=== PATIENT | male | born 1950 | race Caucasian/White ===

== ENCOUNTER 2017-07-25 17:20 | Inpatient (IN) ==
[2017-07-25] MEDS ORDERED: NORMAL SALINE 1,000 ML IV ONE (17:33)
--- NOTE | 2017-07-25 17:44 | ERNOTE ---
Neuro HPI ER Record Date of Service: 07/25/17 Presenting Symptoms: other - Decreased level of consciousness Time Seen by Provider: 07/25/17 17:29 Source: patient, EMS Exam Limitations: other - Decreased level of consciousness Immunizations: IMMUNIZATION HX Immunizations Up to Date Yes Hx Pneumococcal Vaccination No Allergies/Adverse Reactions: Allergies Allergy/AdvReac Type Severity Reaction Status Date / Time Iodinated Contrast- Oral and Allergy Severe Anaphylaxis Verified 07/25/17 17:41 IV Dye baby powder Allergy Severe Other Uncoded 07/25/17 23:21 Home Medications: HOME MEDICATIONS ALPRAZolam [Xanax] 0.25 mg PO BID PRN 07/25/17 [Last Taken Unknown] Acetaminophen 325 mg PO Q4H PRN 07/25/17 [Last Taken Unknown] Albuterol Sulfate/Ipratropium [Duoneb 2.5-0.5MG/3ML Soln] 3 ml IH QID 07/25/17 [ Last Taken Unknown] Allopurinol [Zyloprim (Allopurinol)] 100 mg PO DAILY 07/25/17 [Last Taken Unknown] Atorvastatin Calcium 10 mg PO DAILY 07/25/17 [Last Taken Unknown] Bisacodyl [Dulcolax Suppository] 10 mg RC DAILY PRN 07/25/17 [Last Taken Unknown ] Budesonide [Pulmicort Respules] 2 ml IH BID 07/25/17 [Last Taken Unknown] Clopidogrel Bisulfate [Plavix] 75 mg PO DAILY 07/25/17 [Last Taken Unknown] Docusate Sodium [Doc-Q-Lace] 100 mg PO BID 07/25/17 [Last Taken Unknown] Finasteride [Proscar] 5 mg PO DAILY 07/25/17 [Last Taken Unknown] Furosemide [Lasix] 80 mg PO BID 07/25/17 [Last Taken Unknown] Gabapentin 100 mg PO BID 07/25/17 [Last Taken Unknown] Guaifenesin/Pseudoephedrne HCl [Mucinex D ER Tablet] 1 each PO DAILY 07/25/17 [ Last Taken Unknown] Insulin Detemir [Levemir] 65 units SQ BID 07/25/17 [Last Taken Unknown] Insulin Lispro [Humalog] 30 unit SQ TID 07/25/17 [Last Taken Unknown] Insulin Lispro [Humalog] See Protocol SQ TID 07/25/17 [Last Taken Unknown] Levothyroxine Sodium [Synthroid] 300 mcg PO DAILY 07/25/17 [Last Taken Unknown] Magnesium Hydroxide [Milk Of Magnesia] 30 ml PO DAILY PRN 07/25/17 [Last Taken Unknown] Metoprolol Tartrate [Lopressor] 50 mg PO BID 07/25/17 [Last Taken Unknown] Montelukast Sodium [Singulair] 10 mg PO DAILY 07/25/17 [Last Taken Unknown] Montelukast Sodium [Singulair] 10 mg PO DAILY 07/25/17 [Last Taken Unknown] Pantoprazole Sodium 40 mg PO DAILY 07/25/17 [Last Taken Unknown] Polyethylene Glycol 3350 [Miralax] 17 gm PO DAILY PRN 07/25/17 [Last Taken Unknown] Saccharomyces Boulardii [Florastor] 250 mg PO BID 07/25/17 [Last Taken Unknown] Spironolactone [Aldactone] 25 mg PO DAILY 07/25/17 [Last Taken Unknown] Sucralfate [Carafate] 1 gm PO QID 07/25/17 [Last Taken Unknown] Tamsulosin HCl [Flomax] 0.4 mg PO HS 07/25/17 [Last Taken Unknown] Warfarin Sodium [Jantoven] 4 mg PO DAILY 07/25/17 [Last Taken Unknown] predniSONE [Prednisone] 3 tab PO DAILY 07/25/17 [Last Taken Unknown] traMADol HCL [Tramadol HCl] 50 mg PO Q4H PRN 07/25/17 [Last Taken Unknown] - History of Present Illness Narrative: This patient was brought in by ambulance for decreased level of consciousness. The story is unclear. He was recently at [facility] and was discharged to a [facility] yesterday. They reported to the EMS that he was well yesterday. They said that he aspirated a noodle at lunch so they did not feed him anymore. He had a low blood sugar and was given glucagon. His blood sugar was 188 afterwards. He has been doing some coughing. He has a decreased level of consciousness and they sent him here. The patient denies headache or any other pain. The records indicate that he is taking warfarin. He is on supplemental oxygen at home. Date (Duration): 07/25/17 Onset: other Review of Systems - Narrative Narrative: Limited. He denies chest pain. He denies abdominal pain. He is not short of breath. He denies nausea. Are always swollen but apparently are improved. - Patient's Past Medical History Patient History - Medical: History Unknown Patient History - Cardiac/Respiratory: History Unknown Patient History - Cancer: History Unknown Patient History - Surgical Procedures: Noncontributory Patient History - Other: None - Social History Living Situations: assisted living Psych History: No pertinent hx Smoking Status: Never smoker Alcohol Use: none Drug Use: none - Immunizations Immunizations Up to Date: Yes Hx Pneumococcal Vaccination: No Physical Exam - Physical Exam General Appearance: Present: lethargic, obese, other - drowsy. Head Exam: Present: normal inspection, no evidence of injury Eye Exam: Normal inspection: bilateral, PERRL: bilateral, EOMI: bilateral Ears, Nose, Throat: Present: normal ENT inspection, normal pharynx Neck: Present: normal inspection, other - Obese. Respiratory: Present: no respiratory distress, normal breath sounds, no accessory muscle use, chest nontender, lungs clear Cardiovascular/Chest: Present: regular rate, rhythm, no murmur Gastrointestinal/Abdominal: Present: normal bowel sounds, nontender, nondistended, soft, no organomegaly Extremity Exam: Present: pedal edema, other - He has compression nose in place. Neurological Exam: Present: no motor/sensory deficits, disoriented to place. Absent: facial droop, motor weakness Skin Exam: Present: normal color, warm/dry ED Progress - Date and Time Seen: Date and Time: 07/25/17 20:10 I spoke with Rosita and will repeat the ABG and admit him. Hospital records were requested from [facility]. His showed up later and I spoke with her also. The most likely scenario to me would be that he had a choking and hypoglycemic episode today. He probably had hypoventilation and CO2 retention causing his symptoms that caused him to be sent here. His felt that he was doing better/back to normal after receiving BiPAP. - Results and Orders Patient's Lab Results:: I have reviewed the patient's lab results. - Vital Signs Patient's Vital Signs:: I have reviewed the patient's vital signs. Vital Signs: Vital Signs 07/25/17 17:27 Temperature 35.9 C L Pulse Rate 60 Respiratory 15 Rate Blood Pressure 113/32 O2 Sat by Pulse 96 Oximetry - X-Ray X-Ray #1 X-Ray: chest Interpretation: Interp. by me - increased fluid. Blunting of the angles. Linear density right lower lobe. - CT/Ultrasound CT/Ultrasound Narrative: No acute changes on the head CT - Progress/Reassessment Chief Complaint: Altered Mental Status Departure Clinical Impression: Respiratory failure, CHF (congestive heart failure), Pneumonia - Departure Disposition: Short Term Hospital Inpatient Condition: Fair
[2017-07-25 17:59] LABS: Hematocrit 31.9 % (42.0-52.0); Hemoglobin 9.1 gm/dL (13.5-18.0); Mean Cell Volume 97.3 fl (78-100); Mean Corpuscular Hemoglobin 27.7 pg (27-31); Mean Corpuscular Hgb Conc 28.5 g/dl (32-36); Mean Platelet Volume 10.4 fl (6.0-9.5); Platelet Count 164 K/mm3 (150-450); Red Blood Count 3.28 M/mm3 (4.7-6.0); Red Cell Distribution Width 15.2 % (11.5-14.0); White Blood Count 13.5 K/mm3 (4.0-10.5)
[2017-07-25 18:12] LABS: Prothrombin Time (Patient) 22.3 Seconds (9.0-11.0)
[2017-07-25 18:13] LABS: INR 2.21 INR (0.90-1.10)
[2017-07-25 18:16] LABS: Albumin * 2.7 gm/dl (3.4-5.0); Anion Gap 7.7 mmol/L (6.8-13.8); BUN/Creatinine Ratio 38.3 (9.0-21.6); Bilirubin, Total 0.5 mg/dL (0.0-1.1); Ca. Corrected For Albumin 9.2 mg/dL (8.4-10.2); Calcium * 8.5 mg/dL (7.9-10.9); Potassium 4.7 mmol/L (3.4-4.6); Total Protein 6.5 gm/dL (6.2-8.2)
[2017-07-25 19:14] LABS: Urine Bilirubin Negative (NEGATIVE); Urine Ketone Negative (NEGATIVE); Urine Nitrite Negative (NEGATIVE); Urine Protein 30 mg/dL (NEGATIVE); Urine Specific Gravity 1.015 SP.GR. (1.005-1.030); Urine Urobilinogen Normal (NORMAL); Urine pH 5.5 pH (5.0-7.0)
[2017-07-25] MEDS ORDERED: FUROSEMIDE 10 MG/ML VIAL IV ONE (19:20)
[2017-07-25] MEDS ORDERED: FUROSEMIDE 10 MG/ML VIAL ONE (19:21)
[2017-07-25 19:24] LABS: Urine Appearance Clear (CLEAR); Urine Bacteria None Seen; Urine Blood 10 /ul (NEGATIVE); Urine Color Yellow; Urine RBC None Seen /hpf (0-5); Urine WBC None Seen /hpf (0-5)
--- NOTE | 2017-07-25 21:31 | HP ---
Chief Complaint - Chief Complaint Date of Service: 07/25/17 Time of Service: 21:31 Chief Complaint: "Decreased Level of Consciousness". Source of HPI- Pt; unreliable, ERP report. History of Present Illness: Mr. Mg is a 66-yr-old WM pt of Dr. Deborah Harman with a PMH of: A-fib, Aortic Stenosis s/p TAVR, Chronic Resp. Failure with Hypoxia, CHF, COPD (Severe) , DM II, HTN, Hypothyroidism, Lymphedema- due to Venous insufficiency, BILL ( Treated with BIPAP) & Morbid Obesity. Pt just got discharged from the [facility] to [facility] following hospitalization for multiple medical issues including Akira. Pneumonia from 07/15/17- 07/25/17. Pt is not a good historian and appears fatigued. It was reported to the ERP that he aspirated on noodles during lunch and therefore wasn't fed any further. Around 5 pm, he was found to be in a decreased state of consciousness. His blood sugar was checked and found to be 67. They attempted to treat him with carbs but he vomited . He was then given glucagon bringing his BS to upper 188. According to pt's spouse, pt had been swallowing difficulties even while at the [facility] and reported that video swallow had been recommended, but does not think it was completed. He is chronically on Oxygen at 2 L nc. At the ED tonight, No acute findings on Head CT. The CXR showed, Akira. Pleural effusion, and Pneumonia on the RUL (Official radiology report is pending). Notable Abnormal labs were: WBC of 13,500 with LT shift, BNP -->2041. He received Lasix 80 mg IVP at the ED. The ABGs showed Chronic Hypercapnic Respiratory. Failure. His Pneumonia severity on CURB 65-score is 3 which calls for inpatient admission with possible ICU admission. - Patient's Past Medical History Patient History - Medical: Diabetes Type 2 Insulin Dependent, Hypothyroidism, Other - Lymphadema, Aortic Stenosis, BILL, Patient History - Cardiac/Respiratory: Arrhythmias, CHF, COPD, Hypertension, Hyperlipidemia, CPAP/BiPAP Home Use Patient History - Surgical Procedures: Noncontributory Patient History - Other: None - Family History Father Family History - Medical: History Unknown Mother Family History - Medical: History Unknown - Social History Living Situations: assisted living Psych History: No pertinent hx Smoking Status: Never smoker Alcohol Use: none Drug Use: none - Immunizations Immunizations Up to Date: Yes Hx Pneumococcal Vaccination: No Review Of Systems (GEN) - Review of Systems Additional Comments: ROS unobtainable due to AMS. Allergies/Adverse Reactions: Allergies Allergy/AdvReac Type Severity Reaction Status Date / Time Iodinated Contrast- Oral and Allergy Severe Anaphylaxis Verified 07/25/17 17:41 IV Dye baby powder Allergy Severe Other Uncoded 07/25/17 23:21 Home Medications: HOME MEDICATIONS ALPRAZolam [Xanax] 0.25 mg PO BID PRN 07/25/17 [Last Taken Unknown] Acetaminophen 325 mg PO Q4H PRN 07/25/17 [Last Taken Unknown] Albuterol Sulfate/Ipratropium [Duoneb 2.5-0.5MG/3ML Soln] 3 ml IH QID 07/25/17 [ Last Taken Unknown] Allopurinol [Zyloprim (Allopurinol)] 100 mg PO DAILY 07/25/17 [Last Taken Unknown] Atorvastatin Calcium 10 mg PO DAILY 07/25/17 [Last Taken Unknown] Bisacodyl [Dulcolax Suppository] 10 mg RC DAILY PRN 07/25/17 [Last Taken Unknown ] Budesonide [Pulmicort Respules] 2 ml IH BID 07/25/17 [Last Taken Unknown] Clopidogrel Bisulfate [Plavix] 75 mg PO DAILY 07/25/17 [Last Taken Unknown] Docusate Sodium [Doc-Q-Lace] 100 mg PO BID 07/25/17 [Last Taken Unknown] Finasteride [Proscar] 5 mg PO DAILY 07/25/17 [Last Taken Unknown] Furosemide [Lasix] 80 mg PO BID 07/25/17 [Last Taken Unknown] Gabapentin 100 mg PO BID 07/25/17 [Last Taken Unknown] Guaifenesin/Pseudoephedrne HCl [Mucinex D ER Tablet] 1 each PO DAILY 07/25/17 [ Last Taken Unknown] Insulin Detemir [Levemir] 65 units SQ BID 07/25/17 [Last Taken Unknown] Insulin Lispro [Humalog] 30 unit SQ TID 07/25/17 [Last Taken Unknown] Insulin Lispro [Humalog] See Protocol SQ TID 07/25/17 [Last Taken Unknown] Levothyroxine Sodium [Synthroid] 300 mcg PO DAILY 07/25/17 [Last Taken Unknown] Magnesium Hydroxide [Milk Of Magnesia] 30 ml PO DAILY PRN 07/25/17 [Last Taken Unknown] Metoprolol Tartrate [Lopressor] 50 mg PO BID 07/25/17 [Last Taken Unknown] Montelukast Sodium [Singulair] 10 mg PO DAILY 07/25/17 [Last Taken Unknown] Montelukast Sodium [Singulair] 10 mg PO DAILY 07/25/17 [Last Taken Unknown] Pantoprazole Sodium 40 mg PO DAILY 07/25/17 [Last Taken Unknown] Polyethylene Glycol 3350 [Miralax] 17 gm PO DAILY PRN 07/25/17 [Last Taken Unknown] Saccharomyces Boulardii [Florastor] 250 mg PO BID 07/25/17 [Last Taken Unknown] Spironolactone [Aldactone] 25 mg PO DAILY 07/25/17 [Last Taken Unknown] Sucralfate [Carafate] 1 gm PO QID 07/25/17 [Last Taken Unknown] Tamsulosin HCl [Flomax] 0.4 mg PO HS 07/25/17 [Last Taken Unknown] Warfarin Sodium [Jantoven] 4 mg PO DAILY 07/25/17 [Last Taken Unknown] predniSONE [Prednisone] 3 tab PO DAILY 07/25/17 [Last Taken Unknown] traMADol HCL [Tramadol HCl] 50 mg PO Q4H PRN 07/25/17 [Last Taken Unknown] Exam - Exam Vital Signs: Vital Signs - Last Taken Temp 35.9 C L 07/25/17 17:27 Pulse 55 L 07/25/17 20:45 Resp 17 07/25/17 20:45 BP 151/65 07/25/17 20:45 Pulse Ox 99 07/25/17 20:45 Constitutional: Present: Alert, Cooperative, Morbidly obese, Looks Older than stated age. Absent: Oriented x3 ENT Exam: Present: dry mucous membranes Eye Exam: bilateral eye: normal inspection, PERRL Neck: Present: non-tender, full range of motion, supple Back Exam: Present: normal inspection, no CVA tenderness Breasts: Present: Exam deferred Respiratory: Present: no accessory muscle use, decreased breath sounds Cardiovascular/Chest: Present: normal peripheral pulses, regular rate, rhythm Abdomen: Present: Normal bowel sounds, soft, nontender, obese /Rectal: Present: Exam deferred Extremity: Present: lower extremity edema, slow capillary refill Skin Exam: Present: cool/dry Lymphatic: Present: no adenopathy Neurologic: Present: no motor/sensory deficits, alert Appearance: Present: impaired insight Eye contact: Present: cooperative, decreased rate of speech Thoughts: Present: no apparent hallucination Diagnostic Studies: Abnormal Lab Results 07/25/17 07/25/17 Range/Units Unknown Unknown pCO2 63.8 H (35.0-48.0) mmHg pO2 68.1 L (83.0-108.0) mmHg HCO3 35.2 H (21.0-28.0) mmol/L Total CO2 37.2 H (19.0-24.0) mmol/L Base Excess 8.2 H (-2.0-3.0) mmol/L ABG O2 Sat (Measured) 92.3 L (94.0-98.0) % Urine Protein 30 H (NEGATIVE) mg/dL Urine Blood 10 H (NEGATIVE) /ul Laboratory Results WBC 13.5 K/mm3 (4.0-10.5) H 07/25/17 17:57 RBC 3.28 M/mm3 (4.7-6.0) L 07/25/17 17:57 Hgb 9.1 gm/dL (13.5-18.0) L 07/25/17 17:57 Hct 31.9 % (42.0-52.0) L 07/25/17 17:57 MCV 97.3 fl (78-100) 07/25/17 17:57 MCH 27.7 pg (27-31) 07/25/17 17:57 MCHC 28.5 g/dl (32-36) L 07/25/17 17:57 RDW 15.2 % (11.5-14.0) H 07/25/17 17:57 Plt Count 164 K/mm3 (150-450) 07/25/17 17:57 MPV 10.4 fl (6.0-9.5) H 07/25/17 17:57 Immature Gran % (Auto) 1.50 % (0.001-0.429) H 07/25/17 17:57 Immature Gran # (Auto) 0.20 K/mm3 (0.000-0.0310) H 07/25/17 17:57 Neutrophils % 89.0 % (42-75.0) H 07/25/17 17:57 Lymphocytes % 6.4 % (20-51) L 07/25/17 17:57 Monocytes % 3.0 % (0.0-9) 07/25/17 17:57 Eosinophils % 0.0 % (0.0-3.0) 07/25/17 17:57 Basophils % 0.1 % (0.0-1.0) 07/25/17 17:57 Nucleated RBC % 0.0 k/mm3 (0-1) 07/25/17 17:57 Neutrophils # 12.0 K/mm3 (1.3-6.0) H 07/25/17 17:57 Lymphocytes # 0.87 k/mm3 (1.5-3.5) L 07/25/17 17:57 Monocytes # 0.4 k/mm3 (0.0-1.0) 07/25/17 17:57 Eosinophils # 0.0 k/mm3 (0.0-0.7) 07/25/17 17:57 Absolute Basophils 0.0 k/mm3 (0.0-0.1) 07/25/17 17:57 PT 22.3 Seconds (9.0-11.0) H 07/25/17 17:57 INR (Anticoag Therapy) 2.21 INR (0.90-1.10) H 07/25/17 17:57 pCO2 63.8 mmHg (35.0-48.0) H 07/25/17 Unknown pO2 68.1 mmHg (83.0-108.0) L 07/25/17 Unknown HCO3 35.2 mmol/L (21.0-28.0) H 07/25/17 Unknown Total CO2 37.2 mmol/L (19.0-24.0) H 07/25/17 Unknown Base Excess 8.2 mmol/L (-2.0-3.0) H 07/25/17 Unknown ABG pH 7.36 (7.35-7.45) 07/25/17 Unknown ABG O2 Sat (Measured) 92.3 % (94.0-98.0) L 07/25/17 Unknown Sodium 144 mmol/L (132-142) H 07/25/17 17:57 Plasma Sodium 145 mmol/L (130-142) H 07/25/17 17:57 Potassium 4.7 mmol/L (3.4-4.6) H 07/25/17 17:57 Chloride 102 mmol/L (97-106) 07/25/17 17:57 Carbon Dioxide 39.0 mmol/L (24-32.6) H 07/25/17 17:57 Anion Gap 7.7 mmol/L (6.8-13.8) 07/25/17 17:57 BUN 75 mg/dL (6-23) H 07/25/17 17:57 Creatinine 1.96 mg/dL (0.4-1.4) H 07/25/17 17:57 Est GFR (Non-Af Amer) 37 mL/min (60-130) L 07/25/17 17:57 BUN/Creatinine Ratio 38.3 (9.0-21.6) H 07/25/17 17:57 Random Glucose 165 mg/dL (70-110) H 07/25/17 17:57 Calcium 8.5 mg/dL (7.9-10.9) 07/25/17 17:57 Calcium Adj for Albumin 9.2 mg/dL (8.4-10.2) 07/25/17 17:57 Total Bilirubin 0.5 mg/dL (0.0-1.1) 07/25/17 17:57 AST 33 U/L (0-48) 07/25/17 17:57 ALT 38 U/L (19-67) 07/25/17 17:57 Alkaline Phosphatase 143 U/L (50-170) 07/25/17 17:57 B-Natriuretic Peptide 2041 pg/mL (5-350) H 07/25/17 18:30 Total Protein 6.5 gm/dL (6.2-8.2) 07/25/17 17:57 Albumin 2.7 gm/dl (3.4-5.0) L 07/25/17 17:57 Urine Color Yellow 07/25/17 Unknown Urine Appearance Clear (CLEAR) 07/25/17 Unknown Urine pH 5.5 pH (5.0-7.0) 07/25/17 Unknown Ur Specific [place] 1.015 SP.GR. (1.005-1.030) 07/25/17 Unknown Urine Protein 30 mg/dL (NEGATIVE) H 07/25/17 Unknown Urine Glucose (UA) Negative mg/dL (NEGATIVE) 07/25/17 Unknown Urine Ketones Negative mg/dL (NEGATIVE) 07/25/17 Unknown Urine Blood 10 /ul (NEGATIVE) H 07/25/17 Unknown Urine Nitrate Negative (NEGATIVE) 07/25/17 Unknown Urine Bilirubin Negative mg/dl (NEGATIVE) 07/25/17 Unknown Prot Sulfosalicylic Acd 1+ mg/dL (0) 07/25/17 Unknown Urine Urobilinogen Normal EU/dl (NORMAL) 07/25/17 Unknown Ur Leukocyte Esterase Negative /ul (NEGATIVE) 07/25/17 Unknown Urine RBC None seen /hpf (0-5) 07/25/17 Unknown Urine WBC None seen /hpf (0-5) 07/25/17 Unknown Ur Epithelial Cells 0-5 /hpf (0-5) 07/25/17 Unknown Urine Bacteria None seen (NONE) 07/25/17 Unknown Urine Culture Comments No culture indicated 07/25/17 Unknown Assessment/Plan - Assessment/Plan (1) Pneumonia Assessment: Due to recent hospitalization for Pneumonia, will treat as HAP and will start him on Zosyn. Will need to be evaluated by Speech for swallowing given reports of coughing and difficultyr swallowing which predipses for greater risk of Aspiration Pneumonia. Will keep him NPO until seen by Speech. Problem: Acute Qualifiers: Laterality: right Lung location: upper lobe of lung (2) CHF (congestive heart failure) Assessment: Given Lasix 80 IVP at the ED, Will resume his daily PO doses on 07/26. Problem: Chronic (3) Chronic respiratory failure with hypoxia Assessment: Chronically on 2 L of oxygen. Problem: Chronic (4) Hypercapnic respiratory failure, chronic Assessment: Monitor ABGs in am due to decreased LOC. Laboratory Tests 07/25/17 07/25/17 18:50 Unknown pCO2 74.3 H* 63.8 H pO2 66.1 L 68.1 L HCO3 36.2 H 35.2 H ABG pH 7.31 L 7.36 ABG O2 Sat (Measured) 90.3 L 92.3 L Problem: Chronic (5) CKD (chronic kidney disease) stage 3, GFR 30-59 ml/min Problem: Chronic (6) Diabetes Assessment: Hold Mealtime insulin. Start IVF with dextrose while NPO. Problem: Chronic Qualifiers: Diabetes mellitus type: type 2 (7) HTN (hypertension) Assessment: Stable- Continue Spironolactone, Lasix & Metroprolol. Problem: Chronic Qualifiers: Hypertension type: essential hypertension Qualified Code(s): I10 - Essential (primary) hypertension (8) A-fib Assessment: Stable- On Coumadin. Problem: Chronic (9) Lymphedema Problem: Chronic
[2017-07-25] MEDS ORDERED: ACETAMINOPHEN 325 MG TABLET PO PRN (21:41)
[2017-07-25] MEDS ORDERED: traMADol HCL 50 MG TABLET PO PRN (21:41)
[2017-07-25] MEDS ORDERED: ALPRAZolam 0.25 MG TABLET PO PRN (21:41)
[2017-07-25] MEDS ORDERED: BISACODYL 10 MG SUPP.RECT RC PRN (21:41)
[2017-07-25] MEDS ORDERED: MAGNESIUM HYDROXIDE 30 ML UDC PO PRN (21:41)
[2017-07-25] MEDS ORDERED: BUDESONIDE 0.5 MG/2 ML VIAL.NEB IH SCH (21:45)
[2017-07-25] MEDS ORDERED: ALBUTEROL SULFATE/IPRATROPIUM 3 ML NEBU IH SCH (21:45)
[2017-07-25] MEDS ORDERED: POLYETHYLENE GLYCOL 3350 119 GM BTL PO PRN (22:30)
[2017-07-25] MEDS: SACCHAROMYCES BOULARDII 250 MG CAPSULE PO SCH (23:44)
[2017-07-25] MEDS: SUCRALFATE 1 G TABLET PO SCH (23:44)
[2017-07-25] MEDS: METOPROLOL TARTRATE 50 MG TABLET PO SCH (23:51)
[2017-07-25] MEDS: INSULIN DETEMIR 100 UNITS/ML VIAL SC SCH (23:54)
[2017-07-26] MEDS: PIPERACILLIN SODIUM/TAZOBACTAM 3.375 GM in DEXTROSE 5 % IN WATER 100 ML IV SCH ×8 (00:31→23:19)
[2017-07-26] MEDS ORDERED: DEXTROSE 5%-NORMAL SALINE 1,000 ML IV PRN (01:42)
[2017-07-26] MEDS ORDERED: ALBUTEROL SULFATE/IPRATROPIUM 3 ML NEBU IH ONE (02:14)
[2017-07-26] MEDS ORDERED: BUDESONIDE 0.5 MG/2 ML VIAL.NEB IH ONE (02:14)
--- NOTE | 2017-07-26 05:01 | PN ---
Subjective - Date and Time Seen Date: 07/26/17 Time: 05:01 Subjective Narrative: Pt seen this am. He is alert and able to state needs. He diuresed 1850ml with Lasix 80 mg. ABGs this am show Resp. Hypoxia. No other acute events overnight. Objective - Vitals Vitals: Last Vital Signs Temp 36.8 C 07/25/17 23:32 Pulse 59 L 07/26/17 02:00 Resp 20 07/25/17 23:32 BP 127/60 07/25/17 23:32 Pulse Ox 94 07/25/17 23:32 - Abnormal Lab Findings Abnormal Lab Findings: Abnormal Lab Results 07/25/17 07/25/17 Range/Units Unknown Unknown pCO2 63.8 H (35.0-48.0) mmHg pO2 68.1 L (83.0-108.0) mmHg HCO3 35.2 H (21.0-28.0) mmol/L Total CO2 37.2 H (19.0-24.0) mmol/L Base Excess 8.2 H (-2.0-3.0) mmol/L ABG O2 Sat (Measured) 92.3 L (94.0-98.0) % Urine Protein 30 H (NEGATIVE) mg/dL Urine Blood 10 H (NEGATIVE) /ul - Exam Constitutional: Present: Alert, Oriented x3, Cooperative, No distress ENT Exam: Present: normal ENT inspection, hearing grossly normal Neck: Present: non-tender, full range of motion, supple Breasts: Present: Exam deferred Respiratory: Present: no accessory muscle use, decreased breath sounds, No wheezing Cardiovascular/Chest: Present: normal peripheral pulses, regular rate, rhythm, no chest tenderness Abdomen: Present: Normal bowel sounds, nontender, obese /Rectal: Present: Exam deferred Extremity: Present: normal range of motion, non-tender, normal inspection Skin Exam: Present: no cyanosis, cool/dry Lymphatic: Present: no adenopathy Neurologic: Present: no motor/sensory deficits, alert, oriented x 3 Appearance: Present: appropriate insight Eye contact: Present: cooperative, good eye contact, normal speech Thoughts: Present: normal thought pattern, no apparent hallucination Assessment/Plan - Problems/Diagnosis (1) Pneumonia Problem: Acute Qualifiers: Laterality: right Lung location: upper lobe of lung Narrative: Due to recent hospitalization for Pneumonia, will treat as HAP and will start him on Zosyn. Will need to be evaluated by Speech for swallowing given reports of coughing and difficultyr swallowing which predipses for greater risk of Aspiration Pneumonia. Will keep him NPO until seen by Speech. (2) Chronic respiratory failure with hypoxia Problem: Chronic Narrative: Chronically on 2 L of oxygen. Laboratory Tests 07/26/17 05:00 pCO2 66.0 H pO2 46.3 L HCO3 36.5 H Total CO2 38.6 H Base Excess 9.4 H ABG pH 7.36 ABG O2 Sat (Measured) 79.0 L 07/26/17- Has been on IPAP/EPAP of 02/11. Oxygen turned up to 40%. (3) CHF (congestive heart failure) Problem: Chronic Narrative: Given Lasix 80 IVP at the ED, Will resume his daily PO doses on 07/26. (4) Hypercapnic respiratory failure, chronic Problem: Chronic Narrative: Monitor ABGs in am due to decreased LOC. Laboratory Tests 07/25/17 07/25/17 18:50 Unknown pCO2 74.3 H* 63.8 H pO2 66.1 L 68.1 L HCO3 36.2 H 35.2 H ABG pH 7.31 L 7.36 ABG O2 Sat (Measured) 90.3 L 92.3 L (5) CKD (chronic kidney disease) stage 3, GFR 30-59 ml/min Problem: Chronic Narrative: (6) Diabetes Problem: Chronic Qualifiers: Diabetes mellitus type: type 2 Narrative: Hold Mealtime insulin. Start IVF with dextrose while NPO. (7) HTN (hypertension) Problem: Chronic Qualifiers: Hypertension type: essential hypertension Qualified Code(s): I10 - Essential (primary) hypertension Narrative: Stable- Continue Spironolactone, Lasix & Metroprolol. (8) A-fib Problem: Chronic (9) Lymphedema Problem: Chronic
[2017-07-26 05:49] LABS: Hemoglobin 8.9 gm/dL (13.5-18.0); Mean Cell Volume 94.9 fl (78-100); Mean Corpuscular Hemoglobin 28.2 pg (27-31); Mean Corpuscular Hgb Conc 29.7 g/dl (32-36); Neutrophil # 13.2 K/mm3 (1.3-6.0); Neutrophil % 88.6 % (42-75.0); Platelet Count 152 K/mm3 (150-450); Red Blood Count 3.16 M/mm3 (4.7-6.0); White Blood Count 14.9 K/mm3 (4.0-10.5)
[2017-07-26 06:07] LABS: Anion Gap 9.1 mmol/L (6.8-13.8); BUN/Creatinine Ratio 41.9 (9.0-21.6); Calcium * 8.4 mg/dL (7.9-10.9); Carbon Dioxide 36.9 mmol/L (24-32.6); Estimated Creat Clear 45.2
[2017-07-26] MEDS: ALBUTEROL SULFATE/IPRATROPIUM 3 ML NEBU IH SCH ×4 (06:45→18:12)
[2017-07-26] MEDS: BUDESONIDE 0.5 MG/2 ML VIAL.NEB IH SCH ×2 (06:45→18:17)
[2017-07-26] MEDS: PANTOPRAZOLE SODIUM 40 MG TABLET.EC PO SCH (06:48)
[2017-07-26] MEDS: LEVOTHYROXINE SODIUM 150 MCG TABLET PO SCH (06:48)
[2017-07-26] MEDS ORDERED: FUROSEMIDE 80 MG TABLET PO SCH (07:00)
[2017-07-26] MEDS ORDERED: POLYETHYLENE GLYCOL 3350 119 GM BTL PO PRN (07:15)
[2017-07-26] MEDS: FUROSEMIDE 10 MG/ML VIAL IV SCH ×2 (07:53→21:10)
[2017-07-26] MEDS: SACCHAROMYCES BOULARDII 250 MG CAPSULE PO SCH ×2 (07:59→21:08)
[2017-07-26] MEDS: SPIRONOLACTONE 25 MG TABLET PO SCH (07:59)
[2017-07-26] MEDS: DOCUSATE SODIUM 100 MG CAPSULE PO SCH ×2 (07:59→21:07)
[2017-07-26] MEDS: SUCRALFATE 1 G TABLET PO SCH ×4 (07:59→21:08)
[2017-07-26] MEDS: GUAIFENESIN PO SCH (08:00)
[2017-07-26] MEDS: GABAPENTIN 100 MG CAPSULE PO SCH ×2 (08:00→21:08)
[2017-07-26] MEDS: FINASTERIDE 5 MG TABLET PO SCH (08:00)
[2017-07-26] MEDS: CLOPIDOGREL BISULFATE 75 MG TABLET PO SCH (08:00)
[2017-07-26] MEDS: METOPROLOL TARTRATE 50 MG TABLET PO SCH ×2 (08:00→21:07)
[2017-07-26] MEDS: predniSONE 20 MG TABLET PO SCH (08:00)
[2017-07-26] MEDS: PSEUDOEPHEDRNE HCL PO SCH (08:00)
[2017-07-26] MEDS: ALLOPURINOL 100 MG TABLET PO SCH (08:00)
[2017-07-26 09:00] LABS: Prothrombin Time (Patient) 25.4 Seconds (9.0-11.0)
[2017-07-26] MEDS ORDERED: ROSUVASTATIN CALCIUM 10 MG TABLET PO SCH (09:00)
[2017-07-26] MEDS ORDERED: MONTELUKAST SODIUM 10 MG TABLET PO SCH ×2 (09:00)
[2017-07-26 09:05] LABS: INR 2.52 INR (0.90-1.10)
[2017-07-26] MEDS: INSULIN LISPRO 100 UNITS/ML VIAL SC SCH ×3 (09:22→17:26)
[2017-07-26] MEDS: INSULIN DETEMIR 100 UNITS/ML VIAL SC SCH ×2 (09:33→21:19)
--- NOTE | 2017-07-26 11:04 | PN ---
Progess Note - Interim Date: 07/26/17 Time: 11:03 Narrative: 07/26/17 11:03 I have taken Mr. Mg although his BiPAP and place him on 3 L nasal cannula but will titrate to keep oxygen greater than 90%. I will restart a consistent carb diet and then recheck blood gases at noon.
[2017-07-26] MEDS ORDERED: WARFARIN SODIUM 4 MG TABLET PO SCH (17:00)
[2017-07-26] MEDS: ROSUVASTATIN CALCIUM 10 MG TABLET PO SCH (21:08)
[2017-07-26] MEDS: MONTELUKAST SODIUM 10 MG TABLET PO SCH (21:08)
[2017-07-26] MEDS: TAMSULOSIN HCL 0.4 MG CAP.SR.24H PO SCH (21:09)
[2017-07-27 05:15] LABS: Hematocrit 29.8 % (42.0-52.0); Hemoglobin 8.8 gm/dL (13.5-18.0); Mean Corpuscular Hemoglobin 27.8 pg (27-31); Mean Corpuscular Hgb Conc 29.5 g/dl (32-36); Mean Platelet Volume 10.6 fl (6.0-9.5); Platelet Count 167 K/mm3 (150-450); Red Blood Count 3.17 M/mm3 (4.7-6.0); White Blood Count 10.4 K/mm3 (4.0-10.5)
[2017-07-27 05:22] LABS: Prothrombin Time (Patient) 36.6 Seconds (9.0-11.0)
[2017-07-27 05:27] LABS: Anion Gap 7.2 mmol/L (6.8-13.8); BUN/Creatinine Ratio 40.7 (9.0-21.6); Calcium * 8.4 mg/dL (7.9-10.9); Carbon Dioxide 38.5 mmol/L (24-32.6); Estimated Creat Clear 44.5; Potassium 3.7 mmol/L (3.4-4.6)
[2017-07-27 05:31] LABS: INR 3.61 INR (0.90-1.10)
[2017-07-27] MEDS: ALBUTEROL SULFATE/IPRATROPIUM 3 ML NEBU IH SCH ×4 (06:43→18:13)
[2017-07-27] MEDS: BUDESONIDE 0.5 MG/2 ML VIAL.NEB IH SCH ×2 (06:43→18:16)
[2017-07-27] MEDS: PANTOPRAZOLE SODIUM 40 MG TABLET.EC PO SCH (06:47)
[2017-07-27] MEDS: LEVOTHYROXINE SODIUM 150 MCG TABLET PO SCH (06:47)
[2017-07-27] MEDS: FUROSEMIDE 10 MG/ML VIAL IV SCH ×2 (06:47→21:10)
[2017-07-27] MEDS: PIPERACILLIN SODIUM/TAZOBACTAM 3.375 GM in DEXTROSE 5 % IN WATER 100 ML IV SCH ×4 (06:49→14:04)
[2017-07-27] MEDS: PSEUDOEPHEDRNE HCL PO SCH (08:02)
[2017-07-27] MEDS: GUAIFENESIN PO SCH (08:02)
--- NOTE | 2017-07-27 08:16 | PN ---
Subjective - Date and Time Seen Date: 07/27/17 Time: 08:01 Subjective Narrative: Martell Mg is sitting up in a chair this morning and and no distress. However as I was rounding his nurse was checking his blood sugar and it was 61. They've given him several glasses of orange juice and then recheck the blood sugar 62 about 30 minutes ago and now is up 202 and he is eating breakfast. He was alert and conversant and was not diaphoretic. His pneumonia seems to be responding well to treatment. He has been afebrile. He is on 2 L nasal cannula which is the best he's been since he developed pneumonia. He is sleeping with his BiPAP device but has off while awake now. Anticipate going back to the [facility] tomorrow. Objective - Review of Systems Generalized/Overall Review: Reports: Weakness, Malaise. Denies: Chills, Fever, Diaphoresis, Fatigue EENTM: Reports: No Symptoms Reported Respiratory: Reports: Cough, Shortness of Breath, Orthopnea, Wheezing Cardiac: Reports: No Symptoms Reported Abdominal: Reports: No Symptoms Reported Genitourinary Symptoms: Reports: No Symptoms Reported Musculoskeletal Complaints: Reports: No Symptoms Reported Neurological: Reports: No Symptoms Reported Skin: Reports: No Symptoms Reported Endocrine: Reports: No Symptoms Reported - Vitals Vitals: Last Vital Signs Temp 36.8 C 07/27/17 07:16 Pulse 72 07/27/17 07:16 Resp 20 07/27/17 07:16 BP 130/75 07/27/17 07:16 Pulse Ox 100 07/27/17 07:16 - Abnormal Lab Findings Abnormal Lab Findings: Abnormal Lab Results 07/26/17 07/26/17 07/26/17 Range/Units 04:55 08:15 12:00 RBC (4.7-6.0) M/mm3 Hgb (13.5-18.0) gm/dL Hct (42.0-52.0) % MCHC (32-36) g/dl RDW (11.5-14.0) % MPV (6.0-9.5) fl Immature Gran % (Auto) (0.001-0.429) % Immature Gran # (Auto) (0.000-0.0310) K/mm3 Neutrophils % (42-75.0) % Lymphocytes % (20-51) % Monocytes % (0.0-9) % Neutrophils # (1.3-6.0) K/mm3 Lymphocytes # (1.5-3.5) k/mm3 PT 25.4 H (9.0-11.0) Seconds INR (Anticoag Therapy) 2.52 H (0.90-1.10) INR pCO2 53.8 H (35.0-48.0) mmHg pO2 137.4 H (83.0-108.0) mmHg HCO3 33.5 H 32.6 H (21.0-28.0) mmol/L Total CO2 35.1 H 34.1 H (19.0-24.0) mmol/L Base Excess 7.7 H 7.7 H (-2.0-3.0) mmol/L ABG O2 Sat (Measured) 98.7 H (94.0-98.0) % Sodium (132-142) mmol/L Plasma Sodium (130-142) mmol/L Chloride (97-106) mmol/L Carbon Dioxide (24-32.6) mmol/L BUN (6-23) mg/dL Creatinine (0.4-1.4) mg/dL Est GFR (Non-Af Amer) (60-130) mL/min BUN/Creatinine Ratio (9.0-21.6) 07/27/17 07/27/17 07/27/17 Range/Units 04:55 04:55 04:55 RBC 3.17 L (4.7-6.0) M/mm3 Hgb 8.8 L (13.5-18.0) gm/dL Hct 29.8 L (42.0-52.0) % MCHC 29.5 L (32-36) g/dl RDW 15.0 H (11.5-14.0) % MPV 10.6 H (6.0-9.5) fl Immature Gran % (Auto) 1.40 H (0.001-0.429) % Immature Gran # (Auto) 0.14 H (0.000-0.0310) K/mm3 Neutrophils % 77.0 H (42-75.0) % Lymphocytes % 10.9 L (20-51) % Monocytes % 9.5 H (0.0-9) % Neutrophils # 8.0 H (1.3-6.0) K/mm3 Lymphocytes # 1.13 L (1.5-3.5) k/mm3 PT 36.6 H (9.0-11.0) Seconds INR (Anticoag Therapy) 3.61 H (0.90-1.10) INR pCO2 (35.0-48.0) mmHg pO2 (83.0-108.0) mmHg HCO3 (21.0-28.0) mmol/L Total CO2 (19.0-24.0) mmol/L Base Excess (-2.0-3.0) mmol/L ABG O2 Sat (Measured) (94.0-98.0) % Sodium 149 H (132-142) mmol/L Plasma Sodium 149 H (130-142) mmol/L Chloride 107 H (97-106) mmol/L Carbon Dioxide 38.5 H (24-32.6) mmol/L BUN 74 H (6-23) mg/dL Creatinine 1.82 H (0.4-1.4) mg/dL Est GFR (Non-Af Amer) 40 L (60-130) mL/min BUN/Creatinine Ratio 40.7 H (9.0-21.6) - Exam Constitutional: Present: Alert, Oriented x3, Cooperative, Morbidly obese ENT Exam: Present: normal ENT inspection, hearing grossly normal, pharynx normal , TMs normal Neck: Present: non-tender, full range of motion, supple Breasts: Present: Nontender Respiratory: Present: rhonchi, wheezing Cardiovascular/Chest: Present: normal peripheral pulses, regular rate, rhythm, no chest tenderness, no JVD, no murmur, edema Abdomen: Present: Normal bowel sounds, soft, nontender, nondistended /Rectal: Present: hemorrhoids Extremity: Present: lower extremity edema, pedal edema, swelling Skin Exam: Present: normal color, warm/dry, no cyanosis Lymphatic: Present: no adenopathy Neurologic: Present: 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 Repeat chest x-ray and CBC and CMP tomorrow morning. - Problems/Diagnosis (1) Pneumonia Problem: Acute Qualifiers: Pneumonia type: due to unspecified organism Laterality: right Lung location: upper lobe of lung Qualified Code(s): J18.1 - Lobar pneumonia, unspecified organism (2) Chronic respiratory failure with hypoxia Problem: Chronic (3) Diabetes Problem: Chronic Qualifiers: Diabetes mellitus type: type 2 Diabetes mellitus skilled nursing insulin use: with skilled nursing use Diabetes mellitus complication status: with hypoglycemia
[2017-07-27] MEDS: INSULIN LISPRO 100 UNITS/ML VIAL SC SCH ×3 (08:26→17:06)
[2017-07-27] MEDS: FINASTERIDE 5 MG TABLET PO SCH (08:29)
[2017-07-27] MEDS: CLOPIDOGREL BISULFATE 75 MG TABLET PO SCH (08:29)
[2017-07-27] MEDS: SACCHAROMYCES BOULARDII 250 MG CAPSULE PO SCH ×2 (08:30→20:54)
[2017-07-27] MEDS: METOPROLOL TARTRATE 50 MG TABLET PO SCH ×2 (08:30→20:53)
[2017-07-27] MEDS: ALLOPURINOL 100 MG TABLET PO SCH (08:30)
[2017-07-27] MEDS: GABAPENTIN 100 MG CAPSULE PO SCH ×2 (08:30→20:54)
[2017-07-27] MEDS: predniSONE 20 MG TABLET PO SCH (08:30)
[2017-07-27] MEDS: DOCUSATE SODIUM 100 MG CAPSULE PO SCH ×2 (08:30→20:54)
[2017-07-27] MEDS: SUCRALFATE 1 G TABLET PO SCH ×4 (08:30→20:53)
[2017-07-27] MEDS: SPIRONOLACTONE 25 MG TABLET PO SCH (08:30)
[2017-07-27] MEDS: INSULIN DETEMIR 100 UNITS/ML VIAL SC SCH ×2 (08:36→20:59)
[2017-07-27] MEDS ORDERED: LORazepam 1 MG TABLET PO STA (20:32)
[2017-07-27] MEDS: MONTELUKAST SODIUM 10 MG TABLET PO SCH (20:53)
[2017-07-27] MEDS: ROSUVASTATIN CALCIUM 10 MG TABLET PO SCH (20:53)
[2017-07-27] MEDS: TAMSULOSIN HCL 0.4 MG CAP.SR.24H PO SCH (20:53)
--- NOTE | 2017-07-27 21:18 | PN ---
Terry Note - Interim Date: 07/27/17 Time: 20:30 Narrative: 07/27/17 21:16 I was advised by nursing that Mr. Mg became confused and agitated and was trying to hit staff striking out at his left etc. I went down to see him in his room. His oxygen saturation is 97%. Fingerstick blood sugar was greater than 200. His reports that he has a history of doing this and that lorazepam is helping the past. She is coming in to try to calm him down. I did order him lorazepam 1 mg by mouth. There is no respiratory distress. His color is good. Breath sounds are mostly clear now. Heart has a slightly tacky rate regular rhythm. He is emotionally distraught anxious and a bit tremulous.
[2017-07-28] MEDS: PIPERACILLIN SODIUM/TAZOBACTAM 3.375 GM in DEXTROSE 5 % IN WATER 100 ML IV SCH ×4 (00:22→06:51)
[2017-07-28 05:23] LABS: Hematocrit 29.6 % (42.0-52.0); Hemoglobin 8.9 gm/dL (13.5-18.0); Mean Cell Volume 91.9 fl (78-100); Mean Corpuscular Hemoglobin 27.6 pg (27-31); Mean Corpuscular Hgb Conc 30.1 g/dl (32-36); Mean Platelet Volume 10.4 fl (6.0-9.5); Neutrophil # 8.7 K/mm3 (1.3-6.0); Neutrophil % 82.3 % (42-75.0); Platelet Count 169 K/mm3 (150-450); Red Blood Count 3.22 M/mm3 (4.7-6.0); Red Cell Distribution Width 14.8 % (11.5-14.0); White Blood Count 10.6 K/mm3 (4.0-10.5)
[2017-07-28 05:31] LABS: Prothrombin Time (Patient) 26.8 Seconds (9.0-11.0)
[2017-07-28 05:32] LABS: Anion Gap 5.2 mmol/L (6.8-13.8); BUN/Creatinine Ratio 40.1 (9.0-21.6); Calcium * 8.6 mg/dL (7.9-10.9); Carbon Dioxide 38.3 mmol/L (24-32.6); Estimated Creat Clear 45.7; Potassium 4.5 mmol/L (3.4-4.6)
[2017-07-28] MEDS: ALBUTEROL SULFATE/IPRATROPIUM 3 ML NEBU IH SCH ×2 (06:03→10:49)
[2017-07-28] MEDS: BUDESONIDE 0.5 MG/2 ML VIAL.NEB IH SCH (06:03)
[2017-07-28 06:38] LABS: INR 2.65 INR (0.90-1.10)
[2017-07-28] MEDS: PANTOPRAZOLE SODIUM 40 MG TABLET.EC PO SCH (06:51)
[2017-07-28] MEDS: INSULIN LISPRO 100 UNITS/ML VIAL SC SCH ×2 (06:51→11:44)
[2017-07-28] MEDS: LEVOTHYROXINE SODIUM 150 MCG TABLET PO SCH (06:51)
[2017-07-28] MEDS: FUROSEMIDE 10 MG/ML VIAL IV SCH (06:52)
[2017-07-28] MEDS: ALLOPURINOL 100 MG TABLET PO SCH (08:15)
[2017-07-28] MEDS: GABAPENTIN 100 MG CAPSULE PO SCH (08:15)
[2017-07-28] MEDS: FINASTERIDE 5 MG TABLET PO SCH (08:15)
[2017-07-28] MEDS: SPIRONOLACTONE 25 MG TABLET PO SCH (08:16)
[2017-07-28] MEDS: PSEUDOEPHEDRNE HCL PO SCH (08:16)
[2017-07-28] MEDS: SACCHAROMYCES BOULARDII 250 MG CAPSULE PO SCH (08:16)
[2017-07-28] MEDS: SUCRALFATE 1 G TABLET PO SCH ×2 (08:16→12:52)
[2017-07-28] MEDS: METOPROLOL TARTRATE 50 MG TABLET PO SCH (08:16)
[2017-07-28] MEDS: INSULIN DETEMIR 100 UNITS/ML VIAL SC SCH (08:16)
[2017-07-28] MEDS: CLOPIDOGREL BISULFATE 75 MG TABLET PO SCH (08:16)
[2017-07-28] MEDS: DOCUSATE SODIUM 100 MG CAPSULE PO SCH (08:16)
[2017-07-28] MEDS: GUAIFENESIN PO SCH (08:16)
[2017-07-28] MEDS: predniSONE 20 MG TABLET PO SCH (08:16)
[2017-07-28 12:52] VITALS: BP 131/63
--- NOTE | 2017-07-28 12:54 | DS ---
(1) Pneumonia Problem: Acute Qualifiers: Pneumonia type: due to unspecified organism Laterality: bilateral (2) Hypercapnic respiratory failure, chronic Problem: Chronic Description of Stay: ADMISSION DATE: 07/25/2017 DISCHARGE DATE: 07/28/2017 ADMISSION HPI by SAVANNAH Almonte: Mr. Mg is a 66-yr-old WM pt of Dr. Deborah Harman with a PMH of: A-fib, Aortic Stenosis s/p TAVR, Chronic Resp. Failure with Hypoxia, CHF, COPD (Severe) , DM II, HTN, Hypothyroidism, Lymphedema- due to Venous insufficiency, BILL ( Treated with BIPAP) & Morbid Obesity. Pt just got discharged from the [facility] to [facility] following hospitalization for multiple medical issues including Akira. Pneumonia from 07/15/17- 07/25/17. Pt is not a good historian and appears fatigued. It was reported to the ERP that he aspirated on noodles during lunch and therefore wasn't fed any further. Around 5 pm, he was found to be in a decreased state of consciousness. His blood sugar was checked and found to be 67. They attempted to treat him with carbs but he vomited . He was then given glucagon bringing his BS to upper 188. According to pt's spouse, pt had been swallowing difficulties even while at the [facility] and reported that video swallow had been recommended, but does not think it was completed. He is chronically on Oxygen at 2 L nc. At the ED tonight, No acute findings on Head CT. The CXR showed, Akira. Pleural effusion, and Pneumonia on the RUL (Official radiology report is pending). Notable Abnormal labs were: WBC of 13,500 with LT shift, BNP -->2041. He received Lasix 80 mg IVP at the ED. The ABGs showed Chronic Hypercapnic Respiratory. Failure. His Pneumonia severity on CURB 65-score is 3 which calls for inpatient admission with possible ICU admission. HOSPITAL COURSE: The patient was admitted to the hospital for pneumonia. It is unclear whether or not this is a new pneumonia or if it is unresolved persistent pneumonia that was present during his recent admission at [facility]. I suspect it is more likely the same pneumonia that had not been completely resolved and required additional treatment. The patient received IV Zosyn while he was in the hospital and this was transitioned to oral Levaquin with 7 additional days of treatment after discharge. The patient was discharged back to SNF at [facility] in fair but stable condition for ongoing therapies. The patient will need a follow-up CXR in approximately 4 weeks to document resolution. Per the patient's , Martell has follow-up appointments already scheduled with Pulmonology at [facility]. FOLLOW-UP APPOINTMENTS: -Dr. Harman will follow-up with the patient at [facility] -Follow-up with PCP, Dr. Berumen, within 1 week of discharge from [facility] -Follow-up with Pulmonology at [facility] as previously scheduled NEW OR CHANGED MEDICATIONS: -Levaquin 500mg daily X 7 days DISCONTINUED MEDICATIONS: -None RADIOLOGY REPORTS: Single view CXR on 07/25/2017: Focal consolidation seen in the right lung base with potential left retrocardiac opacity. Findings suggestive of aspiration pneumonitis. Associated small bilateral pleural effusions. Head CT without contrast on 07/25/2017: No acute intracranial abnormality identified. Single View CXR on 07/28/2017: Interval resolution of previously seen right lower lobe opacity. Improving left lower lobe retrocardiac opacity. Consider continued follow-up to document resolution. Procedures Performed: none Results and Findings: Microbiology 07/25/17 23:00 Nares - Final Negative 07/25/17 23:00 Blood Blood Culture - Final NO GROWTH 5 DAYS 07/25/17 23:00 Blood Blood Culture - Final NO GROWTH 5 DAYS Laboratory Tests 07/25/17 07/25/17 07/25/17 17:57 17:57 17:57 WBC 13.5 H Hgb 9.1 L Hct 31.9 L MCV 97.3 Plt Count 164 MPV 10.4 H Immature Gran % (Auto) 1.50 H Immature Gran # (Auto) 0.20 H Neutrophils % 89.0 H Lymphocytes % 6.4 L Neutrophils # 12.0 H Lymphocytes # 0.87 L INR (Anticoag Therapy) 2.21 H pCO2 pO2 HCO3 Total CO2 Base Excess ABG pH ABG O2 Sat (Measured) Sodium 144 H Plasma Sodium 145 H Potassium 4.7 H Chloride 102 Carbon Dioxide 39.0 H Anion Gap 7.7 BUN 75 H Creatinine 1.96 H Est GFR (Non-Af Amer) 37 L BUN/Creatinine Ratio 38.3 H Random Glucose 165 H Calcium 8.5 Calcium Adj for Albumin 9.2 Total Bilirubin 0.5 AST 33 ALT 38 Alkaline Phosphatase 143 B-Natriuretic Peptide Total Protein 6.5 Albumin 2.7 L Urine Appearance Urine pH Ur Specific Gary Urine Protein Urine Glucose (UA) Urine Ketones Urine Nitrate Urine Bilirubin Prot Sulfosalicylic Acd Urine Urobilinogen Ur Leukocyte Esterase Urine RBC Urine WBC Ur Epithelial Cells Urine Bacteria Urine Culture Comments 07/25/17 07/25/17 07/25/17 18:30 18:50 Unknown WBC Hgb Hct MCV Plt Count MPV Immature Gran % (Auto) Immature Gran # (Auto) Neutrophils % Lymphocytes % Neutrophils # Lymphocytes # INR (Anticoag Therapy) pCO2 74.3 H* pO2 66.1 L HCO3 36.2 H Total CO2 38.5 H Base Excess 8.0 H ABG pH 7.31 L ABG O2 Sat (Measured) 90.3 L Sodium Plasma Sodium Potassium Chloride Carbon Dioxide Anion Gap BUN Creatinine Est GFR (Non-Af Amer) BUN/Creatinine Ratio Random Glucose Calcium Calcium Adj for Albumin Total Bilirubin AST ALT Alkaline Phosphatase B-Natriuretic Peptide 2041 H Total Protein Albumin Urine Appearance Clear Urine pH 5.5 Ur Specific Gary 1.015 Urine Protein 30 H Urine Glucose (UA) Negative Urine Ketones Negative Urine Nitrate Negative Urine Bilirubin Negative Prot Sulfosalicylic Acd 1+ Urine Urobilinogen Normal Ur Leukocyte Esterase Negative Urine RBC None seen Urine WBC None seen Ur Epithelial Cells 0-5 Urine Bacteria None seen Urine Culture Comments No culture indicated 07/25/17 07/26/17 07/26/17 Unknown 04:55 04:55 WBC 14.9 H Hgb 8.9 L Hct 30.0 L MCV 94.9 Plt Count 152 MPV 11.0 H Immature Gran % (Auto) 1.30 H Immature Gran # (Auto) 0.20 H Neutrophils % 88.6 H Lymphocytes % 5.6 L Neutrophils # 13.2 H Lymphocytes # 0.83 L INR (Anticoag Therapy) 2.52 H pCO2 63.8 H pO2 68.1 L HCO3 35.2 H Total CO2 37.2 H Base Excess 8.2 H ABG pH 7.36 ABG O2 Sat (Measured) 92.3 L Sodium Plasma Sodium Potassium Chloride Carbon Dioxide Anion Gap BUN Creatinine Est GFR (Non-Af Amer) BUN/Creatinine Ratio Random Glucose Calcium Calcium Adj for Albumin Total Bilirubin AST ALT Alkaline Phosphatase B-Natriuretic Peptide Total Protein Albumin Urine Appearance Urine pH Ur Specific Gary Urine Protein Urine Glucose (UA) Urine Ketones Urine Nitrate Urine Bilirubin Prot Sulfosalicylic Acd Urine Urobilinogen Ur Leukocyte Esterase Urine RBC Urine WBC Ur Epithelial Cells Urine Bacteria Urine Culture Comments 07/26/17 07/26/17 07/26/17 05:00 08:15 12:00 WBC Hgb Hct MCV Plt Count MPV Immature Gran % (Auto) Immature Gran # (Auto) Neutrophils % Lymphocytes % Neutrophils # Lymphocytes # INR (Anticoag Therapy) pCO2 66.0 H 53.8 H 48.0 pO2 46.3 L 137.4 H 93.5 HCO3 36.5 H 33.5 H 32.6 H Total CO2 38.6 H 35.1 H 34.1 H Base Excess 9.4 H 7.7 H 7.7 H ABG pH 7.36 7.41 7.45 ABG O2 Sat (Measured) 79.0 L 98.7 H 97.4 Sodium Plasma Sodium Potassium Chloride Carbon Dioxide Anion Gap BUN Creatinine Est GFR (Non-Af Amer) BUN/Creatinine Ratio Random Glucose Calcium Calcium Adj for Albumin Total Bilirubin AST ALT Alkaline Phosphatase B-Natriuretic Peptide Total Protein Albumin Urine Appearance Urine pH Ur Specific Gary Urine Protein Urine Glucose (UA) Urine Ketones Urine Nitrate Urine Bilirubin Prot Sulfosalicylic Acd Urine Urobilinogen Ur Leukocyte Esterase Urine RBC Urine WBC Ur Epithelial Cells Urine Bacteria Urine Culture Comments 07/27/17 07/27/17 07/28/17 04:55 04:55 05:00 WBC Hgb 8.8 L Hct 29.8 L MCV 94.0 Plt Count 167 MPV 10.6 H Immature Gran % (Auto) 1.40 H Immature Gran # (Auto) 0.14 H Neutrophils % 77.0 H Lymphocytes % 10.9 L Neutrophils # 8.0 H Lymphocytes # 1.13 L INR (Anticoag Therapy) 3.61 H 2.65 H pCO2 pO2 HCO3 Total CO2 Base Excess ABG pH ABG O2 Sat (Measured) Sodium Plasma Sodium Potassium Chloride Carbon Dioxide Anion Gap BUN Creatinine Est GFR (Non-Af Amer) BUN/Creatinine Ratio Random Glucose Calcium Calcium Adj for Albumin Total Bilirubin AST ALT Alkaline Phosphatase B-Natriuretic Peptide Total Protein Albumin Urine Appearance Urine pH Ur Specific Gary Urine Protein Urine Glucose (UA) Urine Ketones Urine Nitrate Urine Bilirubin Prot Sulfosalicylic Acd Urine Urobilinogen Ur Leukocyte Esterase Urine RBC Urine WBC Ur Epithelial Cells Urine Bacteria Urine Culture Comments 07/28/17 07/28/17 05:10 05:30 WBC 10.6 H Hgb 8.9 L Hct 29.6 L MCV 91.9 Plt Count 169 MPV 10.4 H Immature Gran % (Auto) 0.90 H Immature Gran # (Auto) 0.10 H Neutrophils % 82.3 H Lymphocytes % 9.1 L Neutrophils # 8.7 H Lymphocytes # 0.96 L INR (Anticoag Therapy) pCO2 pO2 HCO3 Total CO2 Base Excess ABG pH ABG O2 Sat (Measured) Sodium 141 Plasma Sodium 143 H Potassium 4.5 D Chloride 102 Carbon Dioxide 38.3 H Anion Gap 5.2 L BUN 71 H Creatinine 1.77 H Est GFR (Non-Af Amer) 41 L BUN/Creatinine Ratio 40.1 H Random Glucose 241 H D Calcium 8.6 Calcium Adj for Albumin Total Bilirubin AST ALT Alkaline Phosphatase B-Natriuretic Peptide Total Protein Albumin Urine Appearance Urine pH Ur Specific Gary Urine Protein Urine Glucose (UA) Urine Ketones Urine Nitrate Urine Bilirubin Prot Sulfosalicylic Acd Urine Urobilinogen Ur Leukocyte Esterase Urine RBC Urine WBC Ur Epithelial Cells Urine Bacteria Urine Culture Comments Discharge Location: [facility] Disposition: SNF Condition: Fair Level of Care: SNF Discharge Activity: Activity as tolerated Discharge Diet: Consistent carbs, Low salt, Resume usual diet Care Home Therapy: Physicial Therapy, Occupation Therapy, Speech Therapy Referrals: Deborah Harman DO [Primary Care Provider] - Problem Oriented Discharge Instructions to Patient/Family: Heart Failure, Easy- to-Read, Community-Acquired Pneumonia, Adult, [id number] Additional Patient Instructions (free text): -Dr. Harman will follow-up with the patient at [facility] Prescriptions (Any new or edited meds): Levofloxacin [Levaquin] 500 mg PO DAILY 7 Days #7 tablet Complete Home Medications List: Complete Home Medication List: ALPRAZolam [Xanax] 0.25 mg PO BID PRN 07/25/17 Acetaminophen 325 mg PO Q4H PRN 07/25/17 Albuterol Sulfate/Ipratropium [Duoneb 2.5-0.5MG/3ML Soln] 3 ml IH QID 07/25/17 Allopurinol [Zyloprim] 100 mg PO DAILY 07/25/17 Atorvastatin Calcium 10 mg PO DAILY 07/25/17 Bisacodyl [Dulcolax Suppository] 10 mg RC DAILY PRN 07/25/17 Budesonide [Pulmicort Respules] 2 ml IH BID 07/25/17 Clopidogrel Bisulfate [Plavix] 75 mg PO DAILY 07/25/17 Docusate Sodium [Doc-Q-Lace] 100 mg PO BID 07/25/17 Finasteride [Proscar] 5 mg PO DAILY 07/25/17 Furosemide [Lasix] 80 mg PO BID 07/25/17 Gabapentin 100 mg PO BID 07/25/17 Guaifenesin/Pseudoephedrne HCl [Mucinex D ER Tablet] 1 each PO DAILY 07/25/17 Insulin Detemir [Levemir] 65 units SQ BID 07/25/17 Insulin Lispro [Humalog Kwikpen U-100] 30 unit SQ TID 07/25/17 Insulin Lispro [Humalog] See Protocol SQ TID 07/25/17 Levothyroxine Sodium [Synthroid] 300 mcg PO DAILY 07/25/17 Magnesium Hydroxide [Milk Of Magnesia] 30 ml PO DAILY PRN 07/25/17 Metoprolol Tartrate [Lopressor] 50 mg PO BID 07/25/17 Montelukast Sodium [Singulair] 10 mg PO DAILY 07/25/17 Pantoprazole Sodium 40 mg PO DAILY 07/25/17 Polyethylene Glycol 3350 [Miralax] 17 gm PO DAILY PRN 07/25/17 Saccharomyces Boulardii [Florastor] 250 mg PO BID 07/25/17 Spironolactone [Aldactone] 25 mg PO DAILY 07/25/17 Sucralfate [Carafate] 1 gm PO QID 07/25/17 Tamsulosin HCl [Flomax] 0.4 mg PO HS 07/25/17 Warfarin Sodium [Jantoven] 4 mg PO DAILY 07/25/17 predniSONE [Prednisone] 3 tab PO DAILY 07/25/17 traMADol HCL [Tramadol HCl] 50 mg PO Q4H PRN 07/25/17 Levofloxacin [Levaquin] 500 mg PO DAILY 7 Days #7 tablet 07/28/17 Amb Orders for Discharge: Chest PA & Lateral * Time Frame: 1 Week, Location: Determined By Patient
[2017-07-28] MEDS ORDERED: WARFARIN SODIUM 1 TAB TAB PO SCH (17:00)
[2017-07-28] MEDS ORDERED: WARFARIN SODIUM 4 MG TABLET PO SCH (17:00)
== END 2017-07-28 14:19 | DRG 194 ==
LOC: ER 17:20 → MS 20:24
PROVIDERS: ADMIT Nurse Practitioner; ATTEND Internal Medicine
DX: Y95 Nosocomial condition; E03.9 Hypothyroidism, unspecified; J96.11 Chronic respiratory failure with hypoxia; Z68.43 Body mass index [BMI] 50.0-59.9, adult; Z99.81 Dependence on supplemental oxygen; E11.9 Type 2 diabetes mellitus without complications; Z79.4 Long term (current) use of insulin; J18.9 Pneumonia, unspecified organism; I48.2 Chronic atrial fibrillation; E66.01 Morbid (severe) obesity due to excess calories; E78.5 Hyperlipidemia, unspecified; J96.12 Chronic respiratory failure with hypercapnia; Z79.01 Long term (current) use of anticoagulants; I35.0 Nonrheumatic aortic (valve) stenosis; N18.3 Chronic kidney disease, stage 3 (moderate); I12.9 Hypertensive chronic kidney disease with stage 1 through stage 4 chronic kidney disease, or unspecified chronic kidney disease
CPT/HCPCS: 36415; 36600; 70450; 71010; 71045; 80048; 80053; 81001; 82803; 83519; 83880; 85025; 85610; 87040; 87081; 92610; 93005; 94640; 94660; 94664; 94762; 96374; 99285